=== PATIENT | female | born 1950 | race Native Hawaiian/Other Pacific Islander ===

== ENCOUNTER → 2020-10-30 | Outpatient (CLI) | payer MEDICARE, OTHER ==
--- NOTE | 2020-10-30 16:59 | CT ---
EXAMINATION TYPE: CT chest wo con DATE OF EXAM: 10/30/2020 COMPARISON: None HISTORY: SOB, abnormal Xray CT DLP: 230 mGycm, Automated exposure control for dose reduction was used. CONTRAST: Performed injected with 0 mL of Isovue 300. TECHNIQUE: Axial images were obtained at 5 mm thick sections. Reconstructed images are reviewed on [facility] computer in the coronal plane. FINDINGS: Portion of the thyroid visualized is normal. There appears be a large loculated pleural fluid collection within the anterior left lung opacifying the majority of the lung loo. Findings could also be compatible with a large mass. Emphysematous changes and pulmonary fibrosis is evident within the aerated portions of the lungs. There is a 2.2 cm pretracheal lymph node. Left hilar adenopathy with be difficult to exclude. There appears to be a 1.8 cm subcarinal lymph node present lack of intravenous contrast limiting evaluation for adenopathy. The ascending aorta diameter at the level of the main pulmonary artery is 3.6 cm. T main pulmonary artery diameter at the bifurcation is 3.5 cm. Coronary artery calcification is pres ent. There is a moderate to prominent pericardial effusion. Limited CT sections are obtained through the upper abdomen. Abdomen is essentially unremarkable. IMPRESSIONS: 1. Large mass measuring 35 Hounsfield units in the left upper lung field with a small left pleural ef fusion. This could be a large mass with metastatic extension to the mediastinal lymph nodes. Suspecte d enlarged mediastinal adenopathy. This is limited with lack of intravenous contrast. Differential di agnosis could include a large loculated proteinaceous fluid. 2. Moderate to prominent pericardial effusion.
== END | disposition home or self-care (01) ==
LOC: RADCTMAIN 14:49
PROVIDERS: ATTEND Family Medicine
DX: J90 Pleural effusion, not elsewhere classified (principal); I31.3 Pericardial effusion (noninflammatory); R06.02 Shortness of breath; R91.8 Other nonspecific abnormal finding of lung field; F17.219 Nicotine dependence, cigarettes, with unspecified nicotine-induced disorders
CPT/HCPCS: 71250

== ENCOUNTER 2020-11-12 11:05 | Day surgery (SDC) | payer MEDICARE, OTHER ==
[2020-11-07 10:28] VITALS: BMI 19.0
[~2020-11-12 11:05] MED LIST: ALBUTEROL NEB (CONC) 2.5 MG/0.5 ML INHALATION ONE; ATROPINE SULFATE 0.4 MG/ML 1 ML VIAL IM ONE; LACTATED RINGERS 1,000 ML IV SCH; LIDOCAINE 1% (10MG/ML) FOR IV START INTRADERMA PRN; LIDOCAINE 2% (PF) 20 MG/ML 5 ML VIAL INHALATION ONE; LIDOCAINE VISCOUS 300 MG/15 ML CUP MUCOUS MEM ONE; MIDAZOLAM 2 MG/2 ML VIAL IV PRN
[2020-11-12] MEDS ORDERED: ONDANSETRON 4 MG/2 ML VIAL ONE (12:22)
--- NOTE | 2020-11-12 12:49 | CT ---
EXAMINATION TYPE: CT Chest jenny Lee Protocol DATE OF EXAM: 11/12/2020 COMPARISON: 10/30/2020 HISTORY: Pulmonary nodules, mass CT DLP: 510 mGycm Automated exposure control for dose reduction was used. FINDINGS: Limited exam as part of CT chest protocol. Large area of masslike consolidation occupying a large por tion of the left upper lobe measuring at least 10 cm. There is a left-sided pleural effusion with thais r complete opacification of the left lung. Coarsened interstitium in the right lung and the visualize d portions of the left lung suggest chronic interstitial pulmonary fibrosis. The masslike area of consolidation or neoplastic process results in displacement from left to right o f the mediastinal structures. Atherosclerotic change of the aorta. Suspect that there is pathologic a denopathy or additional mass in the right suprahilar region measuring 4.2 cm. Structures of the upper abdomen are limited. Previously noted mediastinal lymphadenopathy appears sta ble. A nodule adjacent to the spleen is indeterminate. Would require contrast to determine if this is an accessory spleen or an area of metastatic lymphadenopathy. There is a moderate-sized pericardial effusion. Hypertrophic and degenerative change of the spine. Areas of sclerosis involving the mid tho racic vertebral segments is nonspecific. Could be discogenic. Metastases not excluded. Suspect right adrenal gland thickening and mass suspicious for adenopathy. IMPRESSION: 1. SUSPECTED MEDIASTINAL AND HILAR ADENOPATHY WITH LARGE LEFT UPPER LOBE PULMONARY MASS AND LEFT-SIDE D PLEURAL EFFUSION. 2. CORRELATE FOR INTERSTITIAL PULMONARY FIBROSIS. 3. MODERATE-SIZED PERICARDIAL EFFUSION. 4. SUSPECT ADRENAL GLAND ENLARGEMENT AND MASS WITH PROBABLE METASTASES.
[2020-11-12] MEDS ORDERED: MIDAZOLAM 2 MG/2 ML VIAL ONE (13:09)
[2020-11-12] MEDS ORDERED: SUCCINYLCHOLINE CHLORIDE 100 MG/5 ML SYR IV ONE (13:09)
[2020-11-12] MEDS ORDERED: NEOSTIGMINE 1 MG/ML 10 ML VIAL ONE (13:09)
[2020-11-12] MEDS ORDERED: ROCURONIUM 10 MG/ML (10 ML VIAL) IV ONE (13:09)
[2020-11-12] MEDS ORDERED: GLYCOPYRROLATE 0.2 MG/ML 2 ML VIAL ONE (13:09)
[2020-11-12] MEDS ORDERED: fentaNYL (PF) 50 MCG/ML 2 ML AMP ONE (13:09)
[2020-11-12] MEDS ORDERED: PROPOFOL 10 MG/ML 20 ML VIAL IV ONE (13:09)
[2020-11-12] MEDS: POTASSIUM CHLORIDE 10 MEQ in WATER FOR INJECTION 1 100ML.BAG IVPB SCH ×5 (14:15→23:05)
--- NOTE | 2020-11-12 14:44 | XR ---
EXAMINATION TYPE: XR chest 1V portable DATE OF EXAM: 11/12/2020 COMPARISON: CT same date HISTORY: Status post bronchoscopy, lung mass TECHNIQUE: Single frontal view of the chest is obtained. FINDINGS: There is no pneumothorax. Left pleural effusion persists. Abnormal attenuation throughout the left hemithorax with near complete opacification is again seen. There is mediastinal shift toward s the right. Postop changes are noted cervical spine. Interstitium is prominent the right lung. Aorta is dense. IMPRESSION: No evident complication status post bronchoscopy.
[2020-11-12] MEDS ORDERED: NALOXONE 0.4 MG/ML 1 ML VIAL IV PRN (15:28)
[2020-11-12] MEDS ORDERED: oxyCODONE-APAP 5-325MG 1 EACH TAB PO PRN (15:28)
[2020-11-12] MEDS ORDERED: ONDANSETRON 4 MG/2 ML VIAL IVP PRN (15:28)
[2020-11-12] MEDS ORDERED: POTASSIUM CHLORIDE ER 20 MEQ TAB.ER PO STA (15:31)
--- NOTE | 2020-11-12 16:50 | P.HPIM ---
History of Present Illness H&P Date: 11/12/20 Chief Complaint: Hypokalemia 69 year old woman with COPD and chronic respiratory failure requiring 3L O2, current smoker presented for elective bronchoscopy in background of recently discovered lung mass. Patient was seen one week ago by pulmonary and had CT chest which showed mass in the left upper lobe. Pt underwent procedure today for pathological specimen, and recovered well without complications. Notably, patient had low level of potassium, prompting her admission to observation to correct her metabolic derangement. Patient had history of right ankle swelling and her PCP started lasix and potassium supplement approximately 1 week ago. Since that time, patient has lost 7lbs in weight. Pt denies fevers, chills, nausea, vomiting, ZUNIGA, chest pain, palps, dyspnea, abd pain, dysuria, dyschezia, numbness/weakness. Review of Systems All Systems reviewed and pertinent positives and negatives noted in HPI, all other symptoms are negative Past Medical History Past Medical History: Cancer, Osteoarthritis (OA), Skin Disorder Additional Past Medical History / Comment(s): uses oxygen at 3L continuous, recent dx of lung cancer, psoriasis, edema rt ankle. pt has appointment with Dr Ramirez 11/08/20-daughter state she has no cardiac hx and not sure why this appointment set up by PCP History of Any Multi-Drug Resistant Organisms: None Reported Past Surgical History: Cholecystectomy Additional Past Surgical History / Comment(s): cervical fusion Past Anesthesia/Blood Transfusion Reactions: No Reported Reaction Smoking Status: Current some day smoker, Former smoker - Past Family History Brother(s) Family Medical History: Cancer Additional Family Medical History / Comment(s): lung Medications and Allergies Home Medications Medication Instructions Recorded Confirmed Type Furosemide [Lasix] 20 mg PO DAILY 11/07/20 11/12/20 History Ibuprofen [Motrin Ib] 200 mg PO Q8H PRN 11/07/20 11/12/20 History Multivitamin/Iron/Folic Acid 1 each PO DAILY 11/07/20 11/12/20 History [Centrum Adults Tablet] Potassium(Dose Unknown) 1 tab PO DAILY 11/07/20 11/12/20 History Allergies Allergy/AdvReac Type Severity Reaction Status Date / Time codeine Allergy hives Verified 11/12/20 11:42 Penicillins Allergy throat Verified 11/12/20 11:42 closed Physical Exam Osteopathic Statement: *. No significant issues noted on an osteopathic structural exam other than those noted in the History and Physical/Consult. Vitals: Vital Signs Temp Pulse Pulse Resp BP BP Pulse Ox 11/12/20 16:07 93 16 136/82 92 L 11/12/20 15:34 87 16 155/85 95 11/12/20 14:46 75 16 180/97 91 L 11/12/20 14:32 73 18 181/96 91 L 11/12/20 14:18 84 18 165/89 94 L 11/12/20 14:03 98 F 83 14 153/81 96 11/12/20 11:33 98.4 F 84 20 177/96 94 L Intake and Output 11/12/20 11/12/20 11/12/20 06:59 14:59 22:59 Intake Total 600 100 Balance 600 100 Intake: IV 600 100 Other: Weight 39.8 kg Gen: awake, alert, cachectic elderly woman HEENT: normocephalic, atraumatic, good hearing acuity, moist mucous membranes Resp: good air exchange, breathing comfortably with no accessory muscle use, clear to auscultation bilaterally CVS: good distal perfusion x 4, regular rate and rhythm without murmurs GI: soft, NTTP, ND : no SPT, no CVAT, valdez catheter not present MSK: no pitting edema, no clubbing Neuro: non-focal, moving all extremities Psych: cooperative, euthymic mood Results CBC & Chem 7: 11/12/20 11:38 Labs: Abnormal Lab Results - Last 24 Hours (Table) 11/12/20 Range/Units 11:38 Potassium 2.6 L* (3.5-5.1) mmol/L Thrombosis Risk Factor Assmnt - Choose All That Apply Each Factor Represents 1 point: Minor surgery planned Each Risk Factor Represents 2 Points: Age 61-74 years, Malignancy Thrombosis Risk Factor Assessment Total Risk Factor Score: 5 Thrombosis Risk Factor Assessment Level: High Risk Assessment and Plan Assessment: 1. Hypokalemia 2. COPD with chronic respiratory failure, 3L O2 via NC 3. Lung Mass 4. Hypertension 5. 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 Plan: - admit to telemetry - regular diet - pt rec'd 3 x 10mEq of K via IV route in PACU - pt to rec 40mEq PO Tab - repeat K in the AM - magnesium level - repeat BMP, Mg in the AM and replace accordingly - likely discharge tomorrow - will add BP medication if required on discharge - encourage PO intake - LR 75cc/hr until discharge - d/c home lasix versus increase home potassium, TBD Full Code Daughter is DPOA
[2020-11-12] MEDS: LACTATED RINGERS 1,000 ML IV SCH (17:01)
[2020-11-12] MEDS ORDERED: NICOTINE 21MG/24HR PATCH TRANSDERM SCH (18:00)
[2020-11-12] MEDS: SODIUM CHLORIDE 0.9% 1,000 ML IV SCH (18:11)
[2020-11-12 18:29] LABS: Anisocytosis Slight; Basophils # (A) 0.1 k/uL (0-0.2); Basophils % (A) 1 %; Eosinophils % (A) 0 %; HCT 41.6 % (34.0-46.0); HGB 13.1 gm/dL (11.4-16.0); Hypochromasia Slight; Lymphocytes % (A) 12 %; MCH 26.4 pg (25.0-35.0); MCHC 31.4 g/dL (31.0-37.0); MCV 83.9 fL (80.0-100.0); Mean Platelet Volume 9.1; Monocytes # (A) 0.3 k/uL (0-1.0); Monocytes % (A) 4 %; Neutrophils # (A) 7.1 k/uL (1.3-7.7); Neutrophils % (A) 83 %; Platelet Count 326 k/uL (150-450); RBC 4.95 m/uL (3.80-5.40); RDW 18.5 % (11.5-15.5); WBC 8.5 k/uL (3.8-10.6)
[2020-11-12 18:39] LABS: ALT 13 U/L (4-34); AST 31 U/L (14-36); African American GFR (CKD) >90 (>60 ml/min/1.73 sqM); Albumin 3.1 g/dL (3.5-5.0); Alkaline Phosphatase 126 U/L (38-126); Anion Gap 6 mmol/L; Blood Urea Nitrogen 9 mg/dL (7-17); Carbon Dioxide 37 mmol/L (22-30); Chloride 96 mmol/L (98-107); Glucose 165 mg/dL (74-99); Magnesium 1.7 mg/dL (1.6-2.3); Non-African American GFR(CKD) >90 (>60 ml/min/1.73 sqM); Potassium 3.1 mmol/L (3.5-5.1); Sodium 139 mmol/L (137-145); Total Bilirubin 0.5 mg/dL (0.2-1.3); Total Protein 7.4 g/dL (6.3-8.2)
--- NOTE | 2020-11-12 18:42 | PCN ---
PROCEDURE NOTE PROCEDURE: Bronchoscopy, airway examination, therapeutic lavage, bronchoalveolar lavage, endobronchial biopsies, left upper lobe, transbronchial biopsies, left upper lobe, transbronchial needle aspiration, left upper lobe, brushes left upper lobe and washes left upper lobe. PREOPERATIVE DIAGNOSIS: Rule out lung cancer. POSTOPERATIVE DIAGNOSIS: Rule out lung cancer. OPERATORS: 1. Dr. Terrell. 2. Dr. Pulido. There was informed consent and universal timeout. The patient's procedure took place in the endoscopy suite. DESCRIPTION OF PROCEDURE: Anesthesia provided general anesthesia. After the patient was sedated and anesthetized and on the ventilator, the bronchoscope was inserted through the bronchoscope adapter connected to the endotracheal tube. The bronchoscope was taken through the endotracheal tube out into the trachea. The trachea itself appeared normal. Tracheal aaron was sharp. The right upper lobe and its 3 segments, right middle lobe and its 2 segments, right lower lobe and its 5 segments all appeared normal. On the left side, the left lower lobe appeared normal. In the left upper lobe, there was a large tumor obstructing both the left upper lobe proper and the lingula. This is where we did our sampling. Initially we did a transbronchial needle aspiration of the lesion. We did multiple passes. I believe we did 4 different passes. Next we did endobronchial and transbronchial biopsies of the lesion in the left upper lobe. Finally, we did brushes of that lesion as well as washes. We used an [employer] navigational bronchoscopy equipment. There was minimal bleeding. We made sure there was adequate hemostasis before the bronchoscope was withdrawn. The patient tolerated the procedure well. The patient will be recovered by Anesthesia. I did talk to the patient's daughter. I also gave her pictures of the lesion. The patient tolerated the procedure without complication. MMODL / IJN: [id number] /
[2020-11-12 18:45] LABS: Prothrombin Time 10.7 sec (9.0-12.0)
[2020-11-12] MEDS ORDERED: MAGNESIUM SULFATE-D5W PMX 1 GM in DEXTROSE/WATER 1 100ML.BAG IVPB ONE (20:00)
[2020-11-13] MEDS: POTASSIUM CHLORIDE 10 MEQ in WATER FOR INJECTION 1 100ML.BAG IVPB SCH ×2 (00:16→02:21)
[2020-11-13] MEDS: LACTATED RINGERS 1,000 ML IV SCH (06:41)
[2020-11-13] MEDS: SODIUM CHLORIDE 0.9% 1,000 ML IV SCH (06:41)
[2020-11-13 07:06] LABS: Amorphous Sediment,Urine Rare /hpf; Appearance,Urine Cloudy (Clear); Bilirubin,Urine Negative (Negative); Blood,Urine Negative (Negative); Cellular Casts,Urine 15 /lpf (0); Color,Urine Yellow; Glucose,Urine (UA) Negative (Negative); Granular Casts,Urine 63 /lpf (0); Hyaline Casts,Urine 38 /lpf (0-2); Ketones,Urine Negative (Negative); Leukocyte Esterase,Urine Small (Negative); Mucus,Urine Few /hpf; Nitrite,Urine Negative (Negative); Protein,Urine 1+ (Negative); RBC,Urine 1 /hpf (0-5); Specific Gravity,Urine 1.017 (1.001-1.035); Squamous Epithelial Cell,Urine 2 /hpf (0-4); Urobilinogen,Urine <2.0 mg/dL (<2.0); WBC,Urine 16 /hpf (0-5)
[2020-11-13 08:19] LABS: Anisocytosis Slight; Basophils # (A) 0.1 k/uL (0-0.2); Basophils % (A) 1 %; Eosinophils % (A) 0 %; HCT 39.3 % (34.0-46.0); HGB 12.5 gm/dL (11.4-16.0); Hypochromasia Slight; Lymphocytes # (A) 1.1 k/uL (1.0-4.8); Lymphocytes % (A) 12 %; MCH 26.8 pg (25.0-35.0); MCHC 31.8 g/dL (31.0-37.0); MCV 84.1 fL (80.0-100.0); Monocytes # (A) 0.3 k/uL (0-1.0); Monocytes % (A) 4 %; Neutrophils # (A) 7.2 k/uL (1.3-7.7); Neutrophils % (A) 82 %; Platelet Count 318 k/uL (150-450); RBC 4.68 m/uL (3.80-5.40); RDW 18.4 % (11.5-15.5); WBC 8.8 k/uL (3.8-10.6)
[2020-11-13 08:33] LABS: African American GFR (CKD) >90 (>60 ml/min/1.73 sqM); Blood Urea Nitrogen 13 mg/dL (7-17); Calcium 10.6 mg/dL (8.4-10.2); Chloride 98 mmol/L (98-107); Glucose 149 mg/dL (74-99); Non-African American GFR(CKD) >90 (>60 ml/min/1.73 sqM); Potassium 4.1 mmol/L (3.5-5.1); Sodium 139 mmol/L (137-145)
[2020-11-13 08:39] LABS: Anion Gap 3 mmol/L; Carbon Dioxide 38 mmol/L (22-30)
[2020-11-13] MEDS ORDERED: ENOXAPARIN 40 MG/0.4 ML SYRINGE SQ SCH (09:00)
[2020-11-13] MEDS ORDERED: MULTIVITAMINS, THERA 1 EACH TAB PO SCH (09:00)
--- NOTE | 2020-11-13 09:29 | P.DS ---
Providers Expected date of discharge: 11/13/20 Attending physician: Cole Lynch [facility] [place] [facility] Course: This is a 69-year-old female with past medical history significant for underlying COPD and chronic hypoxic respiratory failure on home O2 who was placed in observation after she was found to be hypokalemic when having elective bronchoscopy. Patient was recently found to have a lung mass and underwent a bronchoscopy yesterday and her potassium was 2.6. In recovery room I was asked to keep her on observation area patient said that she was started on Lasix and potassium supplement by her PCP secondary to lower extremity edema just recently. At this time, patient appeared dry. Her lower extremity showed no edema. Potassium was replaced. She will be discharged home and was advised to discontinue both Lasix and potassium at this time and monitor for any signs of edema. She will follow-up with her PCP as directed. Potassium at the time of discharge was 4.1. Patient will be discharged home in a stable condition. For further details about this hospitalization please refer to the electronic chart. Time spent on discharge > 30 minutes including counseling and coordination of care Plan - Discharge Summary Discharge Rx Participant: No New Discharge Prescriptions: Continue Ibuprofen [Motrin Ib] 200 mg PO Q8H PRN PRN Reason: Pain Multivitamin/Iron/Folic Acid [Centrum Adults Tablet] 1 each PO DAILY Discontinued Furosemide [Lasix] 20 mg PO DAILY Potassium(Dose Unknown) 1 tab PO DAILY Discharge Medication List Ibuprofen [Motrin Ib] 200 mg PO Q8H PRN 11/07/20 [History] Multivitamin/Iron/Folic Acid [Centrum Adults Tablet] 1 each PO DAILY 11/07/20 [History] Follow up Appointment(s)/Referral(s): Eddi Terrell DO [Doctor of Osteopathic Medicine] - 1 Week Activity/Diet/Wound Care/Special Instructions: MUST RECEIVE POTASSIUM REPLACEMENT AND HAVE REDRAW LAB PRIOR TO D/C HOME Discharge Disposition: HOME SELF-CARE
[2020-11-13 09:38] VITALS: BP 139/84; PULSE 89; RESP 16; TEMP 98.1
== END 2020-11-13 10:28 | disposition home or self-care (01) ==
LOC: ORWHC2ENDO 11:05 → 1SOBS 13:44 → ORWHC2ENDO 11-13 10:28
PROVIDERS: ATTEND Internal Medicine
DX: J44.9 Chronic obstructive pulmonary disease, unspecified (principal); J96.11 Chronic respiratory failure with hypoxia; J90 Pleural effusion, not elsewhere classified; E87.6 Hypokalemia; I10 Essential (primary) hypertension; M19.90 Unspecified osteoarthritis, unspecified site; L40.9 Psoriasis, unspecified; F17.200 Nicotine dependence, unspecified, uncomplicated; Z88.0 Allergy status to penicillin; Z88.5 Allergy status to narcotic agent; Z99.81 Dependence on supplemental oxygen; Z90.49 Acquired absence of other specified parts of digestive tract; Z98.1 Arthrodesis status; Z80.1 Family history of malignant neoplasm of trachea, bronchus and lung; Z82.49 Family history of ischemic heart disease and other diseases of the circulatory system; Z83.3 Family history of diabetes mellitus
CPT/HCPCS: 88104; 88173; 88108; 88305; 80053; 80048; 83735 ×2; 84132; 85025 ×2; 85610; 81001; 71045; 71250; 31629; 31625; 31623; 31624; 31627; J2250; J0461; J2710; J2405; J3010; J3475; J3480 ×2; J0330; J2704; 88341; 88342

== ENCOUNTER 2020-11-19 18:14 | Inpatient (IN) | payer MEDICARE, OTHER ==
[2020-11-19 18:53] LABS: Anisocytosis Slight; Basophils # (A) 0.1 k/uL (0-0.2); Basophils % (A) 1 %; Eosinophils % (A) 1 %; HCT 38.3 % (34.0-46.0); HGB 12.4 gm/dL (11.4-16.0); Lymphocytes # (A) 1.2 k/uL (1.0-4.8); Lymphocytes % (A) 16 %; MCH 26.4 pg (25.0-35.0); MCHC 32.4 g/dL (31.0-37.0); MCV 81.7 fL (80.0-100.0); Mean Platelet Volume 8.6; Microcytosis Slight; Monocytes # (A) 0.4 k/uL (0-1.0); Monocytes % (A) 5 %; Neutrophils # (A) 5.7 k/uL (1.3-7.7); Neutrophils % (A) 77 %; Platelet Count 367 k/uL (150-450); RBC 4.69 m/uL (3.80-5.40); RDW 18.1 % (11.5-15.5); WBC 7.5 k/uL (3.8-10.6)
[2020-11-19 19:06] LABS: ALT 12 U/L (4-34); AST 34 U/L (14-36); African American GFR (CKD) >90 (>60 ml/min/1.73 sqM); Albumin 3.2 g/dL (3.5-5.0); Alkaline Phosphatase 129 U/L (38-126); Blood Urea Nitrogen 12 mg/dL (7-17); Calcium 11.9 mg/dL (8.4-10.2); Chloride 97 mmol/L (98-107); Glucose 112 mg/dL (74-99); Magnesium 2.1 mg/dL (1.6-2.3); Non-African American GFR(CKD) >90 (>60 ml/min/1.73 sqM); Sodium 140 mmol/L (137-145); Total Bilirubin 0.5 mg/dL (0.2-1.3); Total Protein 7.5 g/dL (6.3-8.2)
[2020-11-19 19:13] LABS: Anion Gap 5 mmol/L
[2020-11-19 19:17] LABS: Carbon Dioxide 38 mmol/L (22-30); Potassium 2.2 mmol/L (3.5-5.1)
--- NOTE | 2020-11-19 19:17 | ED ---
General Adult HPI - General Chief complaint: Recheck/Abnormal Lab/Rx Stated complaint: abn labs Time Seen by Provider: 11/19/20 18:15 Source: patient, RN notes reviewed, old records reviewed Mode of arrival: ambulatory Limitations: no limitations - History of Present Illness Initial comments: This is a 69-year-old female who presents to the emergency department with the complaint that her potassium is low. Patient states this has happened once before. Patient was recently diagnosed with lung cancer. Patient states she has been feeling very weak over the last few days. Patient denies any fever chills or cough. Patient denies any chest pain. Patient denies any palpitation. Patient denies abdominal pain patient denies nausea vomiting diarrhea. Patient denies any headache patient denies numbness weakness. - Related Data Home Medications Medication Instructions Recorded Confirmed Ibuprofen [Motrin Ib] 200 mg PO Q8H PRN 11/07/20 11/19/20 Multivitamin/Iron/Folic Acid 1 tab PO DAILY 11/07/20 11/19/20 [Centrum Adults Tablet] hydroCHLOROthiazide 25 mg PO DAILY 11/19/20 11/19/20 Allergies Allergy/AdvReac Type Severity Reaction Status Date / Time codeine Allergy hives Verified 11/19/20 19:02 Penicillins Allergy throat Verified 11/19/20 19:02 closed Review of Systems ROS Statement: Those systems with pertinent positive or pertinent negative responses have been documented in the HPI. ROS Other: All systems not noted in ROS Statement are negative. Past Medical History Past Medical History: Cancer, Osteoarthritis (OA), Skin Disorder Additional Past Medical History / Comment(s): uses oxygen at 3L continuous, recent dx of lung cancer, psoriasis, edema rt ankle. pt has appointment with Dr Ramirez 11/08/20-daughter state she has no cardiac hx and not sure why this appointment set up by PCP History of Any Multi-Drug Resistant Organisms: None Reported Past Surgical History: Cholecystectomy Additional Past Surgical History / Comment(s): cervical fusion Past Anesthesia/Blood Transfusion Reactions: No Reported Reaction Past Psychological History: Anxiety Smoking Status: Former smoker Past Alcohol Use History: None Reported Past Drug Use History: None Reported - Past Family History Brother(s) Family Medical History: Cancer Additional Family Medical History / Comment(s): lung General Exam - General Exam Comments Initial Comments: GENERAL: Patient is well-developed and well-nourished. Patient is nontoxic and well- hydrated and is in mild distress. ENT: Neck is soft and supple. No significant lymphadenopathy is noted. Oropharynx is clear. Moist mucous membranes. Neck has full range of motion without eliciting any pain. EYES: The sclera were anicteric and conjunctiva were pink and moist. Extraocular movements were intact and pupils were equal round and reactive to light. Eyelids were unremarkable. PULMONARY: Significantly decreased breath sounds on the left CARDIOVASCULAR: There is a regular rate and rhythm without any murmurs gallops or rubs. ABDOMEN: Soft and nontender with normal bowel sounds. SKIN: Skin is clear with no lesions or rashes and otherwise unremarkable. NEUROLOGIC: Patient is alert and oriented x3. Cranial nerves II through XII are grossly intact. Motor and sensory are also intact. Normal speech, volume and content. Symmetrical smile. MUSCULOSKELETAL: Normal extremities with adequate strength and full range of motion. LYMPHATICS: No significant lymphadenopathy is noted PSYCHIATRIC: Normal psychiatric evaluation. Limitations: no limitations Course Vital Signs 11/19/20 18:16 Temperature 97.9 F Pulse Rate 85 Respiratory 16 Rate Blood Pressure 141/87 O2 Sat by Pulse 95 Oximetry Medical Decision Making - Medical Decision Making EKG shows normal sinus rhythm at 82 bpm PA interval is 166 dresses 74 QT interval 02 QTC is 352 per patient's EKG shows no ST segment elevation there is Q waves throughout the precordial leads and some slight ST segment depression in leads 1 to and aVF Patient's potassium was 2.2. Patient's chest x-ray showed complete opacification of the left lung. I started the patient on 10 mEq the time of potassium chloride at a time of potassium chloride up to 40 mg. I also gave the patient 40 mg of Magy Dur by mouth. I spoke with Dr. Romero agreed to admit the patient admitted the patient wrote admitting orders I consult pulmonary. - Lab Data Result diagrams: 11/19/20 18:40 11/19/20 18:40 Lab Results 11/19/20 11/19/20 Range/Units 18:40 18:40 WBC 7.5 (3.8-10.6) k/uL RBC 4.69 (3.80-5.40) m/uL Hgb 12.4 (11.4-16.0) gm/dL Hct 38.3 (34.0-46.0) % MCV 81.7 (80.0-100.0) fL MCH 26.4 (25.0-35.0) pg MCHC 32.4 (31.0-37.0) g/dL RDW 18.1 H (11.5-15.5) % Plt Count 367 (150-450) k/uL MPV 8.6 Neutrophils % 77 % Lymphocytes % 16 % Monocytes % 5 % Eosinophils % 1 % Basophils % 1 % Neutrophils # 5.7 (1.3-7.7) k/uL Lymphocytes # 1.2 (1.0-4.8) k/uL Monocytes # 0.4 (0-1.0) k/uL Eosinophils # 0.0 (0-0.7) k/uL Basophils # 0.1 (0-0.2) k/uL Anisocytosis Slight Microcytosis Slight Sodium 140 (137-145) mmol/L Potassium 2.2 L* (3.5-5.1) mmol/L Chloride 97 L (98-107) mmol/L Carbon Dioxide 38 H (22-30) mmol/L Anion Gap 5 mmol/L BUN 12 (7-17) mg/dL Creatinine 0.58 (0.52-1.04) mg/dL Est GFR (CKD-EPI)AfAm >90 (>60 ml/min/1.73 sqM) Est GFR (CKD-EPI)NonAf >90 (>60 ml/min/1.73 sqM) Glucose 112 H (74-99) mg/dL Calcium 11.9 H (8.4-10.2) mg/dL Magnesium 2.1 (1.6-2.3) mg/dL Total Bilirubin 0.5 (0.2-1.3) mg/dL AST 34 (14-36) U/L ALT 12 (4-34) U/L Alkaline Phosphatase 129 H (38-126) U/L Total Protein 7.5 (6.3-8.2) g/dL Albumin 3.2 L (3.5-5.0) g/dL Disposition Clinical Impression: Hypokalemia, Lung consolidation, History of lung cancer, Fatigue Disposition: ADMITTED IP TO THIS [facility] Referrals: Meet Sanchez DO [Primary Care Provider] - 1-2 days Time of Disposition: 19:40
--- NOTE | 2020-11-19 19:21 | XR ---
EXAMINATION TYPE: XR chest 2V DATE OF EXAM: 11/19/2020 COMPARISON: 11/12/2020 HISTORY: bronchoscopy TECHNIQUE: 2 views FINDINGS: There is complete opacification left hemithorax. Heart and mediastinum are shifted somewhat to the right side. There is interstitial coarse infiltrate in the right lung. There is slight blunti ng right costophrenic angle. There are chest leads. 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 Interstitial infiltrate in the right lung. Hydrot horax appears more dense than previous exam.
[2020-11-19] MEDS ORDERED: POTASSIUM CHLORIDE ER 20 MEQ TAB.ER PO STA (19:31)
[2020-11-19] MEDS: POTASSIUM CHLORIDE 10 MEQ in WATER FOR INJECTION 1 100ML.BAG IVPB SCH ×4 (19:41→22:56)
[2020-11-19] MEDS ORDERED: SODIUM CHLORIDE 0.9% 1,000 ML IV ONE (19:42)
[2020-11-20 08:55] LABS: ALT 12 U/L (4-34); AST 34 U/L (14-36); African American GFR (CKD) >90 (>60 ml/min/1.73 sqM); Albumin 3.2 g/dL (3.5-5.0); Alkaline Phosphatase 125 U/L (38-126); Blood Urea Nitrogen 9 mg/dL (7-17); Calcium 12.1 mg/dL (8.4-10.2); Chloride 97 mmol/L (98-107); Glucose 128 mg/dL (74-99); Non-African American GFR(CKD) >90 (>60 ml/min/1.73 sqM); Potassium 3.1 mmol/L (3.5-5.1); Sodium 141 mmol/L (137-145); Total Bilirubin 0.6 mg/dL (0.2-1.3); Total Protein 7.4 g/dL (6.3-8.2)
[2020-11-20 09:26] LABS: Anion Gap 5 mmol/L
[2020-11-20 09:30] LABS: Carbon Dioxide 39 mmol/L (22-30)
--- NOTE | 2020-11-20 11:00 | P.CNPUL ---
History of Present Illness Consult date: 11/20/20 Reason for consult: lung mass History of present illness: 9-year-old female patient was urgently referred to our office because of a large left lung mass. CAT scan of the chest showed a lung mass occupying the majority of the left lung at least 10 cm in size in addition to a left-sided pleural effusion and there is near complete opacification of the left lung which is essentially replaced by tumor. The mass was also displacing the mediastinal structures [id number] and there was also pathologic lymphadenopathy on the right side including the right suprahilar region measuring up to 4.2 cm in size. Note that this CAT scan was done without contrast. Areas of sclerosis was seen in the mid thoracic vertebral segments which are nonspecific. Metastases cannot be excluded in the right adrenal gland. There was a moderate-sized pericardial effusion. Based on this, the patient underwent a medication a bronchoscopy and the biopsy came back positive for squamous cell carcinoma. The patient came back to the hospital yesterday through emergency department complaining of a abnormal lab where she was told that her potassium level was low. She was feeling weak over the past few days. She denied having any fever chills. No chest pain. No palpitation. No nausea vomiting or abdominal pain. No diarrhea. She did have some generalized weakness. No numbness PEEP no tingling. The patient's potassium level came back at 2.2. The patient had nonspecific EKG changes. The patient's hemoglobin was at 12.4 with a white cell count of 7.4 and the patient was started on potassium replacement therapy. Pulmonary consultation was requested. The potassium level today is at 3.1. Calcium level is at 12.1 suggestive of skeletal metastases versus paraneoplastic and currently is on a simple mask with oxygen flow of 15 L. She is quite cachectic. Her voice is somewhat soft and muffled possibly related to some underlying vocal cord pathology, possible paralysis. Review of Systems Constitutional: Reports fatigue, Reports weakness Eyes: denies as per HPI, denies blurred vision, denies bulging eye, denies decreased vision, denies diplopia, denies discharge, denies dry eye, denies irritation, denies itching, denies pain, denies photophobia, denies loss of peripheral vision, denies loss of vision, denies tunnel vision/blind spots Ears, nose, mouth and throat: Reports as per HPI, Reports voice changes Breasts: absent: as per HPI, change in shape, gynecomastia, masses, nipple discharge, pain, skin changes, swelling Cardiovascular: Reports as per HPI Respiratory: Reports as per HPI, Reports cough, Reports dyspnea Gastrointestinal: Reports as per HPI Genitourinary: Reports as per HPI Menstruation: Reports as per HPI Musculoskeletal: Reports as per HPI Musculoskeletal: absent: ankle pain, ankle stiffness, ankle swelling Integumentary: Reports as per HPI Neurological: Reports as per HPI Psychiatric: Reports as per HPI Endocrine: Reports as per HPI Hematologic/Lymphatic: Reports as per HPI Allergic/Immunologic: Reports as per HPI Past Medical History Past Medical History: Cancer, Osteoarthritis (OA), Skin Disorder Additional Past Medical History / Comment(s): uses oxygen at 3L continuous, recent dx of squamous lung cancer, psoriasis, edema rt ankle. pt has appointment with Dr Ramirez 11/08/20-daughter state she has no cardiac hx and not sure why this appointment set up by PCP History of Any Multi-Drug Resistant Organisms: None Reported Past Surgical History: Cholecystectomy Additional Past Surgical History / Comment(s): cervical fusion Past Anesthesia/Blood Transfusion Reactions: No Reported Reaction Past Psychological History: Anxiety Smoking Status: Former smoker Past Alcohol Use History: None Reported Additional Past Alcohol Use History / Comment(s): daughter thinks occ cigar, quit cigarettes 14 yrs ago, smoked over 40 yrs Past Drug Use History: None Reported - Past Family History Brother(s) Family Medical History: Cancer Additional Family Medical History / Comment(s): lung Medications and Allergies Home Medications Medication Instructions Recorded Confirmed Type Ibuprofen [Motrin Ib] 200 mg PO Q8H PRN 11/07/20 11/19/20 History Multivitamin/Iron/Folic Acid 1 tab PO DAILY 11/07/20 11/19/20 History [Centrum Adults Tablet] hydroCHLOROthiazide 25 mg PO DAILY 11/19/20 11/19/20 History Allergies Allergy/AdvReac Type Severity Reaction Status Date / Time codeine Allergy hives Verified 11/19/20 19:02 Penicillins Allergy throat Verified 11/19/20 19:02 closed Physical Exam Vitals: Vital Signs Temp Pulse Pulse Resp BP BP Pulse Ox 11/20/20 08:30 87 26 H 11/20/20 08:00 98.1 F 87 26 H 174/86 91 L 11/20/20 04:00 98.1 F 82 16 166/82 91 L 11/19/20 21:56 98.7 F 80 20 147/93 91 L 11/19/20 21:26 98.0 F 82 18 145/78 93 L 11/19/20 20:22 76 18 92 L 11/19/20 20:21 82 L 11/19/20 19:56 81 18 151/79 86 L 11/19/20 18:16 97.9 F 85 16 141/87 95 Intake and Output 11/19/20 11/20/20 11/20/20 22:59 06:59 14:59 Intake Total 100 Balance 100 Intake: Oral 100 Other: Voiding Method Bedpan # Voids 2 Weight 38.555 kg 38 kg Thin and frail female patient, nonacute respiratory distress, wearing a simple fullface mask and she has a very hoarse and low volume voice. Head exam was generally normal. There was no scleral icterus or corneal arcus. Mucous membranes were moist. Neck was supple and without jugular venous distension, thyromegaly, or carotid bruits. Carotids were easily palpable bilaterally. There is supraclavicular lymphadenopathy Lungs sounds are markedly diminished on the left compared to the right. Cardiac exam revealed the PMI to be normally situated and sized. The rhythm was regular and no extrasystoles were noted during several minutes of auscultation. The first and second heart sounds were normal and physiologic splitting of the second heart sound was noted. There were no murmurs, rubs, clicks, or gallops. Examination of the extremities revealed easily palpable radial, femoral and pedal pulses. There was no cyanosis, clubbing or edema. Abdominal exam revealed normal bowel sounds. The abdomen was soft, non-tender, and without masses, organomegaly, or appreciable enlargement of the abdominal aorta. Neurologically, the patient is awake and alert and the patient does not have any focal neurological deficit. Cranial nerves are essentially intact. Examination of the skin revealed no evidence of significant rashes, suspicious appearing nevi or other concerning lesions. 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 Examination, the patient has digital clubbing and the patient also has suprac lavicular lymphadenopathy worse on the left. He also possibly have an adrenal metastases based on the CAT scan findings. 2 acute on chronic hypoxic respiratory failure. The patient has complete opa cification of the left lung and currently she is on a simple mask at 15 L per minute nasal cannula. She is typically on 3 L of oxygen by nasal cannula 3 acute hypokalemia 4 acute hypercalcemia, rule out skeletal metastases versus paraneoplastic 5 hoarseness, consider vocal cord paralysis 6 COPD 7 gout 8 history of smoking 9 osteoarthritis 10 cachexia with ongoing weight loss Plan IV fluid hydration with normal saline at the rate of 100 mL an hour and monitor the calcium levels Check a bone scan scan Replace potassium Wean down the FiO2 as tolerated and put the patient on IV Zosyn for any possible postobstructive pneumonia as the patient has an endobronchial tumor causing obstruction of the airway and complete opacification of the left lung Prognosis poor.
[2020-11-20 11:13] VITALS: BMI 16.3
[2020-11-20] MEDS: LEVOFLOXACIN 500 MG TAB PO SCH (13:20)
[2020-11-20] MEDS: CLINDAMYCIN 600 MG in DEXTROSE 5% IN WATER 50 ML IVPB SCH ×4 (13:21→20:24)
[2020-11-20] MEDS ORDERED: Potassium Replacement Protocol 1 EACH MISC MISCELLANE PRN (14:41)
[2020-11-20] MEDS: POTASSIUM CHLORIDE ER 20 MEQ TAB.ER PO SCH ×2 (15:44→16:51)
--- NOTE | 2020-11-20 15:44 | NM ---
EXAMINATION TYPE: NM bone scan whole body DATE OF EXAM: 11/20/2020 COMPARISON: CT 10/30/2024 chest x-ray 11/19/2020 HISTORY: Lung cancer Delayed whole-body scanning was performed following the injection of 23.4 mCi Tc 99m MDP. Images acq uired 3 hours post injection. FINDINGS: Soft tissue uptake is normal. Uptake within the ankles, knees, wrists, shoulders and elbows is likely degenerative. No abnormal areas of increased or decreased radiopharmaceutical uptake to suggest meta static disease. IMPRESSION: No evident metastasis.
[2020-11-20] MEDS: HEPARIN SODIUM,PORCINE 5,000 UNIT/ML 1 ML VIAL SQ SCH (20:24)
[2020-11-20] MEDS: FAMOTIDINE 20 MG/2 ML VIAL IV SCH (20:25)
--- NOTE | 2020-11-20 20:37 | P.HPIM ---
History of Present Illness This is a pleasant 69 years old female with past medical history of recent diagnosis of squamous cell lung cancer and chronic hypoxic respiratory failure on 3 L oxygen via nasal cannula, psoriasis, osteoarthritis, he was recently un derwent lung biopsy and bronchoscopy by Dr. Terrell on 11/12/20, she was recently discharged on 11/13, also she was hypokalemic at that time. This time patient presents with generalized weakness associated with hypokalemia. Patient and son at bedside called me they are aware of the diagnosis of left lung cancer. She presents with worsening dyspnea especially over the last 2 days no chest pain but has little cough from little phlegm. She is a smoker and smokes about 1 pack per day quit about 2 weeks ago, she denies alcohol or illicit drugs. Last admission his potassium was 2.6 on 11/12, this time he came in his potassium was the same was 2.6. Upon discharge him on 11/13 he was taking potassium 1 tablet daily and it wasstopped along with discontinuing 20 mg of by mouth Lasix. His potassium on discharge was 4.1 Her potassium was corrected to 4.1 today, rest of the CBC and BMP is unremarkabl e. Urine is cloudy but there is not suspicious of infection, patient is afebrile. ON ADMISSION SHE WAS HYPOXIC TO 86% ON 4 L OXYGEN VIA NASAL CANNULA . Currently his oxygen saturation is 93% on 13 L Ventimask Chest x-ray, left side tension hydrothorax, interstitial infiltrates in the right side EKG showing normal sinus rhythm at [address]-T changes In the emergency room he was started on 1 time dose of by mouth Lasix and Levaquin/clindamycin were added by pulmonary team Hydrochlorothiazide on admission was held Pulmonary input is appreciated,( CAT scan of the chest showed a lung mass occupying the majority of the left lung at least 10 cm in size in addition to a left-sided pleural effusion and there is near complete opacification of the left lung which is essentially replaced by tumor.) Review of Systems CONSTITUTIONAL: No fever, no malaise, no fatigue. HEENT: No recent visual problems or hearing problems. Denied any sore throat. CARDIOVASCULAR: No orthopnea, PND, no palpitations, no syncope. PULMONARY: No chest wall tenderness, no hemoptysis. GASTROINTESTINAL: No diarrhea, no nausea, no vomiting, no abdominal pain. Normoactive bowel sounds. NEUROLOGICAL: No headaches, no weakness, no numbness. HEMATOLOGICAL: Denies any bleeding or petechiae. GENITOURINARY: Denies any burning micturition, frequency, or urgency. MUSCULOSKELETAL/RHEUMATOLOGICAL: Denies any joint pain, swelling, or any muscle pain. ENDOCRINE: Denies any polyuria or polydipsia. Past Medical History Past Medical History: Cancer, Osteoarthritis (OA), Skin Disorder Additional Past Medical History / Comment(s): uses oxygen at 3L continuous, recent dx of squamous lung cancer, psoriasis, edema rt ankle. pt has appointment with Dr Ramirez 11/08/20-daughter state she has no cardiac hx and not sure why this appointment set up by PCP History of Any Multi-Drug Resistant Organisms: None Reported Past Surgical History: Cholecystectomy Additional Past Surgical History / Comment(s): cervical fusion Past Anesthesia/Blood Transfusion Reactions: No Reported Reaction Past Psychological History: Anxiety Smoking Status: Former smoker Past Alcohol Use History: None Reported Additional Past Alcohol Use History / Comment(s): daughter thinks occ cigar, quit cigarettes 14 yrs ago, smoked over 40 yrs Past Drug Use History: None Reported - Past Family History Brother(s) Family Medical History: Cancer Additional Family Medical History / Comment(s): lung Medications and Allergies Home Medications Medication Instructions Recorded Confirmed Type Ibuprofen [Motrin Ib] 200 mg PO Q8H PRN 11/07/20 11/19/20 History Multivitamin/Iron/Folic Acid 1 tab PO DAILY 11/07/20 11/19/20 History [Centrum Adults Tablet] hydroCHLOROthiazide 25 mg PO DAILY 11/19/20 11/19/20 History Allergies Allergy/AdvReac Type Severity Reaction Status Date / Time codeine Allergy hives Verified 11/19/20 19:02 Penicillins Allergy throat Verified 11/19/20 19:02 closed Physical Exam Vitals: Vital Signs Temp Pulse Pulse Resp BP BP Pulse Ox 11/20/20 11:40 98.0 F 83 20 158/82 93 L 11/20/20 08:30 87 26 H 11/20/20 08:00 98.1 F 87 24 174/86 91 L 11/20/20 04:00 98.1 F 82 16 166/82 91 L 11/19/20 21:56 98.7 F 80 20 147/93 91 L 11/19/20 21:26 98.0 F 82 18 145/78 93 L 11/19/20 20:22 76 18 92 L 11/19/20 20:21 82 L 11/19/20 19:56 81 18 151/79 86 L 11/19/20 18:16 97.9 F 85 16 141/87 95 Intake and Output 11/19/20 11/20/20 11/20/20 22:59 06:59 14:59 Intake Total 100 Balance 100 Intake: Oral 100 Other: Voiding Method Bedpan # Voids 2 Weight 38.555 kg 38 kg 38 kg -GENERAL: The patient is alert and oriented x3, not in any acute distress. Thin lady HEENT: Pupils are round and equally reacting to light. EOMI. No scleral icterus. No conjunctival pallor. Normocephalic, atraumatic. No pharyngeal erythema. No thyromegaly. CARDIOVASCULAR: S1 and S2 present. No murmurs, rubs, or gallops. -PULMONARY: Chest is clear to auscultation, no wheezing or crackles. Decreased breath sounds on the left side ABDOMEN: Soft, nontender, nondistended, normoactive bowel sounds. No palpable organomegaly. MUSCULOSKELETAL: No joint swelling or deformity. EXTREMITIES: No cyanosis, clubbing, or pedal edema. NEUROLOGICAL: Gross neurological examination did not reveal any focal deficits. SKIN: No rashes. No petechiae Results CBC & Chem 7: 11/19/20 18:40 11/20/20 17:59 Labs: Abnormal Lab Results - Last 24 Hours (Table) 11/19/20 11/19/20 11/20/20 Range/Units 18:40 18:40 07:37 RDW 18.1 H (11.5-15.5) % Potassium 2.2 L* 3.1 L (3.5-5.1) mmol/L Chloride 97 L 97 L (98-107) mmol/L Carbon Dioxide 38 H 39 H (22-30) mmol/L Glucose 112 H 128 H (74-99) mg/dL Calcium 11.9 H 12.1 H (8.4-10.2) mg/dL Alkaline Phosphatase 129 H (38-126) U/L Albumin 3.2 L 3.2 L (3.5-5.0) g/dL Thrombosis Risk Factor Assmnt - Choose All That Apply Each Risk Factor Represents 2 Points: Age 61-74 years Thrombosis Risk Factor Assessment Total Risk Factor Score: 2 Thrombosis Risk Factor Assessment Level: Low Risk Assessment and Plan Assessment: Recently diagnosed squamous cell left lung cancer With near complete opacification of the left side, with possible elements of pleural effusion possible postobstructive pneumonia Acute hypoxic respiratory failure Severe hypokalemia on admission Cachexia COPD with Chronic hypoxic respiratory failure and a 3 L/m oxygen History of psoriasis Osteoarthritis Plan: This is a pleasant 69 there's old female who presents with left lung Mass, cancer, hypokalemia, with possible elements of postobstructive pneumonia, continue with clindamycin and Levaquin per pulmonary team recommendation, gentle hydration, replacement potassium on monitor, check a pro-calcitonin This is a pleasant 69 years old male who presents with weakness, hypokalemia and possible right lower lobe infiltrate/pneumonia Labs and medication were reviewed.. Continue same treatment. Continue with symptomatic treatment. Resume home medication. Monitor lytes and vitals. DVT and GI prophylaxis. Further recommendations depends on the clinical course of the patient DVT prophylaxis: Subcutaneous heparin GI Prophylaxis: Pepcid PT/OT: Pending Prognosis is guarded
[2020-11-20] MEDS ORDERED: POTASSIUM CHLORIDE ER 20 MEQ TAB.ER PO STA (20:39)
[2020-11-20] MEDS ORDERED: HEPARIN SODIUM,PORCINE 5,000 UNIT/ML 1 ML VIAL SQ SCH (21:00)
[2020-11-21] MEDS: CLINDAMYCIN 600 MG in DEXTROSE 5% IN WATER 50 ML IVPB SCH ×4 (03:31→14:03)
[2020-11-21 07:00] VITALS: RESP 18
[2020-11-21 08:31] LABS: ALT 12 U/L (4-34); AST 34 U/L (14-36); African American GFR (CKD) >90 (>60 ml/min/1.73 sqM); Albumin 3.2 g/dL (3.5-5.0); Alkaline Phosphatase 124 U/L (38-126); Anion Gap 3 mmol/L; Blood Urea Nitrogen 10 mg/dL (7-17); Calcium 11.8 mg/dL (8.4-10.2); Carbon Dioxide 38 mmol/L (22-30); Chloride 101 mmol/L (98-107); Glucose 127 mg/dL (74-99); Magnesium 1.9 mg/dL (1.6-2.3); Non-African American GFR(CKD) >90 (>60 ml/min/1.73 sqM); Potassium 3.4 mmol/L (3.5-5.1); Sodium 142 mmol/L (137-145); Total Bilirubin 0.6 mg/dL (0.2-1.3); Total Protein 7.5 g/dL (6.3-8.2)
[2020-11-21] MEDS ORDERED: ACETAMINOPHEN TAB 325 MG TAB PO PRN (08:56)
[2020-11-21] MEDS: FAMOTIDINE 20 MG/2 ML VIAL IV SCH (09:01)
[2020-11-21] MEDS: HEPARIN SODIUM,PORCINE 5,000 UNIT/ML 1 ML VIAL SQ SCH (09:01)
[2020-11-21] MEDS: POTASSIUM CHLORIDE ER 20 MEQ TAB.ER PO SCH (10:07)
--- NOTE | 2020-11-21 10:51 | P.PN ---
Subjective Progress Note Date: 11/21/20 9-year-old female patient was urgently referred to our office because of a large left lung mass. CAT scan of the chest showed a lung mass occupying the majority of the left lung at least 10 cm in size in addition to a left-sided pleural effusion and there is near complete opacification of the left lung which is essentially replaced by tumor. The mass was also displacing the mediastinal structures [id number] and there was also pathologic lymphadenopathy on the right side including the right suprahilar region measuring up to 4.2 cm in size. Note that this CAT scan was done without contrast. Areas of sclerosis was seen in the mid thoracic vertebral segments which are nonspecific. Metastases cannot be excluded in the right adrenal gland. There was a moderate-sized pericardial effusion. Based on this, the patient underwent a medication a bronchoscopy and the biopsy came back positive for squamous cell carcinoma. The patient came back to the hospital yesterday through emergency department complaining of a abnormal lab where she was told that her potassium level was low. She was feeling weak over the past few days. She denied having any fever chills. No chest pain. No palpitation. No nausea vomiting or abdominal pain. No diarrhea. She did have some generalized weakness. No numbness PEEP no tingling. The patient's potassium level came back at 2.2. The patient had nonspecific EKG changes. The patient's hemoglobin was at 12.4 with a white cell count of 7.4 and the patient was started on potassium replacement therapy. Pulmonary consultation was requested. The potassium level today is at 3.1. Calcium level is at 12.1 suggestive of skeletal metastases versus paraneoplastic and currently is on a simple mask with oxygen flow of 15 L. She is quite cachectic. Her voice is somewhat soft and muffled possibly related to some underlying vocal cord pathology, possible paralysis. Ration of 11/21/2020, the patient is feeling slightly better. She seems to be having a bit more energy and she seems to be slightly more awake compared to yesterday. Her potassium level initially placed and this helped with her overall muscle weakness. She has short of breath with limited amount of activity. She has occasional coffee no significant sputum production. No chest pain. No hemoptysis. No pleurisy. Her flow of oxygen is currently down to 3 L and the patient has no fever chills or night sweats pH is on broad-spectrum antibiotics. Bone scan was completed and there is no evidence of any metastases. She was receiving IV fluids and her calcium level has also improved. Objective - Vital Signs Vital signs: Vital Signs Temp 98.3 F 11/21/20 08:30 Pulse 91 11/21/20 08:30 Resp 18 11/21/20 08:30 BP 140/79 11/21/20 08:30 Pulse Ox 92 L 11/21/20 08:30 Intake & Output 11/20/20 11/21/20 11/21/20 18:59 06:59 18:59 Intake Total 580 450 Output Total 500 1 200 Balance 80 -1 250 Weight 38 kg 38.5 kg Intake: Oral 580 450 Output: Urine 500 1 200 Other: Voiding Method Bedpan # Voids 1 - Exam Thin and frail female patient, nonacute respiratory distress, wearing a simple fullface mask and she has a very hoarse and low volume voice. Head exam was generally normal. There was no scleral icterus or corneal arcus. Mucous membranes were moist. Neck was supple and without jugular venous distension, thyromegaly, or carotid bruits. Carotids were easily palpable bilaterally. There is supraclavicular lymphadenopathy Lungs sounds are markedly diminished on the left compared to the right. Cardiac exam revealed the PMI to be normally situated and sized. The rhythm was regular and no extrasystoles were noted during several minutes of auscultation. The first and second heart sounds were normal and physiologic splitting of the second heart sound was noted. There were no murmurs, rubs, clicks, or gallops. Examination of the extremities revealed easily palpable radial, femoral and pedal pulses. There was no cyanosis, clubbing or edema. Abdominal exam revealed normal bowel sounds. The abdomen was soft, non-tender, and without masses, organomegaly, or appreciable enlargement of the abdominal aorta. Neurologically, the patient is awake and alert and the patient does not have any focal neurological deficit. Cranial nerves are essentially intact. Examination of the skin revealed no evidence of significant rashes, suspicious appearing nevi or other concerning lesions. 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 Examination, the patient has digital clubbing and the patient also has supraclavicular lymphadenopathy worse on the left. He also possibly have an adrenal metastases based on the CAT scan findings. 2 acute on chronic hypoxic respiratory failure. The patient has complete opacification of the left lung and currently she is on oxygen back on 3 L per minute nasal cannula 3 acute hypokalemia, improving 4 acute hypercalcemia, bone scan is negative more metastases likely paraneoplastic 5 hoarseness, consider vocal cord paralysis 6 COPD 7 gout 8 history of smoking 9 osteoarthritis 10 cachexia with ongoing weight loss Plan IV fluid hydration with normal saline at the rate of 100 mL an hour and monitor the calcium levels bone scan scan is negative for mets elevation of the calcium is likely paraneoplastic Replace potassium Wean down the FiO2 to 3 L by nasal cannula IV Zosyn for any possible postobstructive pneumonia as the patient has an endobronchial tumor causing obstruction of the airway and complete opacification of the left lung Prognosis poor. Establish CODE STATUS and awaiting final recommendations by oncology
[2020-11-21 12:07] VITALS: BP 163/79; PULSE 79; TEMP 98
[2020-11-21] MEDS: LEVOFLOXACIN 500 MG TAB PO SCH (14:02)
--- NOTE | 2020-11-21 15:20 | P.CONS ---
History of Present Illness - Reason for Consult Consult date: 11/21/20 Squamous cell lung cancer Requesting physician: Cuauhtemoc Sutton - Chief Complaint fatigue - History of Present Illness Pt is a very pleasant female that we have been asked to see for a recent diagnosis of squamous cell carcinoma of the lung. She was referred to Pulmonary in late October 2020 for 2-3 mo of voice hoarseness, wt loss, and progressive weakness, imaging reveled a VINICIUS mass. CT chest VINICIUS mass, mediastinal and hilar adenopathy, lt plerual effusion and suspect adrenal met. Bronch and biopsy done 11/12/20, path positive for invasive squamous cell carcinoma. Pt is admitted with progressive fatigue. She was found to be hypokalemic, NMBS negative for bone mets, Ca++ 11.8 today. Pt daughter states she was driving in Sep, was walking around independently but, SOB has been present for quite sometime, has progressed, daughter now has to help pt to bathroom and then back to bed, pt is not doing much else. Appetite is poor, no vomiting, hemoptysis, chest pain, abd pain, acute changes in bowel or bladder habits, swelling, or other pain to report. Review of Systems 14 point ROS is negative except as stated in HPI-provided mostly by her daughter Past Medical History Past Medical History: Cancer, Osteoarthritis (OA), Skin Disorder Additional Past Medical History / Comment(s): uses oxygen at 3L continuous, recent dx of squamous lung cancer, psoriasis, edema rt ankle. pt has appointment with Dr Ramirez 11/08/20-daughter state she has no cardiac hx and not sure why this appointment set up by PCP History of Any Multi-Drug Resistant Organisms: None Reported Past Surgical History: Cholecystectomy Additional Past Surgical History / Comment(s): cervical fusion Past Anesthesia/Blood Transfusion Reactions: No Reported Reaction Past Psychological History: Anxiety Smoking Status: Former smoker Past Alcohol Use History: None Reported Additional Past Alcohol Use History / Comment(s): daughter thinks occ cigar, quit cigarettes 14 yrs ago, smoked over 40 yrs Past Drug Use History: None Reported - Past Family History Brother(s) Family Medical History: Cancer Additional Family Medical History / Comment(s): lung Medications and Allergies Home Medications Medication Instructions Recorded Confirmed Type Ibuprofen [Motrin Ib] 200 mg PO Q8H PRN 11/07/20 11/19/20 History Multivitamin/Iron/Folic Acid 1 tab PO DAILY 11/07/20 11/19/20 History [Centrum Adults Tablet] Acetaminophen Tab [Tylenol] 650 mg PO Q6HR PRN tab 11/21/20 Rx Clindamycin [Cleocin] 450 mg PO Q6H #120 cap 11/21/20 Rx Famotidine [Pepcid] 20 mg PO Q12HR #60 tab 11/21/20 Rx Levofloxacin [Levaquin] 500 mg PO Q24H 10 Days #10 tab 11/21/20 Rx Potassium Chloride ER [K-Dur 10] 10 meq PO DAILY 5 Days #5 tab 11/21/20 Rx Allergies Allergy/AdvReac Type Severity Reaction Status Date / Time codeine Allergy hives Verified 11/19/20 19:02 Penicillins Allergy throat Verified 11/19/20 19:02 closed Physical Exam Vitals: Vital Signs Temp Pulse Resp BP Pulse Ox 11/21/20 14:04 18 11/21/20 12:05 98.0 F 79 18 163/79 92 L 11/21/20 08:30 98.3 F 91 18 140/79 92 L 11/21/20 06:30 18 95 11/21/20 03:47 98.1 F 55 L 20 168/70 94 L 11/21/20 01:25 98 11/20/20 23:11 98 F 80 19 168/88 93 L 11/20/20 20:00 98.4 F 86 19 166/98 91 L 11/20/20 16:00 86 20 156/81 91 L Intake and Output 11/21/20 11/21/20 11/21/20 06:59 14:59 22:59 Intake Total 690 Output Total 1 200 Balance -1 490 Intake: Oral 690 Output: Urine 1 200 Other: # Voids 1 Weight 38.5 kg - Constitutional General appearance: cooperative, no acute distress, thin - EENT Eyes: anicteric sclerae, EOMI, poor dentition ENT: hearing grossly normal - Neck Neck: no lymphadenopathy - Respiratory Respiratory: bilateral: CTA, diminished - Cardiovascular Rhythm: regular Heart sounds: normal: S1, S2 Abnormal Heart Sounds: no systolic murmur, no diastolic murmur, no rub, no S3 Gallop, no S4 Gallop, no click, no other leg Peripheral Edema: bilateral: None - Gastrointestinal General gastrointestinal: no absent bowel sounds, no decreased bowel sounds, no distended, no hepatomegaly, no hyperactive bowel sounds, normal bowel sounds, no organomegaly, no rigid, scaphoid, soft, no splenomegaly, no tenderness, no umbilical hernia, no ventral hernia - Neurologic Neurologic: CNII-XII intact - Musculoskeletal Musculoskeletal: generalized weakness - Psychiatric Psychiatric: A&O x's 3, appropriate affect, intact judgment & insight Results CBC & Chem 7: 11/19/20 18:40 11/21/20 12:30 Labs: Abnormal Lab Results - Last 24 Hours (Table) 11/20/20 11/21/20 Range/Units 17:59 07:37 Potassium 3.0 L 3.4 L (3.5-5.1) mmol/L Carbon Dioxide 38 H (22-30) mmol/L Glucose 127 H (74-99) mg/dL Calcium 11.8 H (8.4-10.2) mg/dL Albumin 3.2 L (3.5-5.0) g/dL Comments: NM Bone scan report reviewed CT scan - chest: report reviewed Assessment and Plan (1) Squamous cell lung cancer Narrative/Plan: Reviewed diagnosis of squamous cell lung cancer, most likely stage IV. MRI brain and completion of images (CT or PET) for staging are suggested. If stage IV intent of treatment is to decrease disease burden, help relieve symptoms of cancer and prolong life. Based on pt PS and comorbidities tolerance to treatment is variable. We discussed biomarker testing of the tumor to see if pt is a candidate for a targeted agent or IO. We will request specimen block be sent. All pt and daughters questions were answered to their satisfaction. We discussed palliative care and hospice care, intent of each. Highly recommend palliative if they have not made and decisions regarding how they would like to proceed with cancer by discharge. Case discussed with Attending Status: Acute Priority: High Code(s): C34.90 - MALIGNANT NEOPLASM OF UNSP PART OF UNSP BRONCHUS OR LUNG SNOMED Code(s): 232640308 Plan: Doctor attests: I performed a history and physical examination of this patient, developed impression and plan of care. Discussed with dictator. I agree with dictators note, documented as a scribe. Time with Patient: Greater than 30
[2020-11-21] MEDS ORDERED: FAMOTIDINE 20 MG TAB PO SCH (21:00)
--- NOTE | 2020-11-21 23:23 | P.DS ---
Providers Date of admission: 11/19/20 19:43 Attending physician: Gavin Lew Consults: 11/19/20 19:42 Consult Physician Urgent Consulting Provider: Cuauhtemoc Sutton Consult Reason/Comments: Opacification left lung, lung cancer Do you want consulting provider notified?: Yes 11/20/20 16:46 Consult Physician Routine Consulting Provider: Donal Feng Consult Reason/Comments: lung CA Do you want consulting provider notified?: Yes Primary care physician: Meet Sanchez Hospital Course: Diagnoses: COPD with acute exacerbation stage IV left lung cancer with metastasis to the bone, however bone scan was negative with history of Malignant right side pleural effusion, and near complete consolidation of the right lung Possible postobstructive pneumonia Acute hypoxic respiratory failure secondary to above Hyperlipidemia Hospital course: This is a pleasant 69 years old female with past medical history of recent diagnosis of squamous cell lung cancer and chronic hypoxic respiratory failure on 3 L oxygen via nasal cannula, psoriasis, osteoarthritis, he was recently underwent lung biopsy and bronchoscopy by Dr. Terrell on 11/12/20, she was recently discharged on 11/13, also she was hypokalemic at that time. This time patient presents with generalized weakness associated with hypokalemia. Patient was on hydrochlorothiazide which was stopped, potassium replaced to normal 3.7 upon discharge and short course of oral potassium is provided as well as dietary advice. Patient is with advanced lung cancer and possible postobstructive pneumonia, she's been evaluated by pulmonary/critical care team and started on clindamycin and Levaquin. Consultants on the case for pulmonary team as well as oncology team. Consultants discussed hospice care with the patient, I got contacted by the nursing staff that the patient TO go to hospice. I had a lengthy discussion with the patient and daughter at bedside on several occasions discussing the treatment plan, patient does not want to stay in the hospital to get treated with antibiotic and I told her she is not medically cleared for discharge although she was asking to be discharged today. Patient does not want to leave AMA concerning that her medical insurance provider will not be done for this visit. Given AMA also appears not recommended for the patient. Patient eventually with at bedside both decided to go for hospice. I explained to them clearly that hospice means likely expectancy less than 6 months which is true for her case. if She refuses therapy. Patient confirmed to me and to the daughter and bed side nurse Ketty that she does not want any chemotherapy, radiotherapy, immunotherapy or any other therapy for her cancer. Then hospice becomes eligible for her, I explained to her the idea of hospice. I also told her that she can change her mind and come out of hospice if she wants. Based upon my evaluation patient has capacity to make medical decision as she is oriented to time, place and person and she is aware of her diagnosis and she will follow commands clearly Patient was adamant to leave the hospital today on hospice care. Discussed with business relations manager Lorraine about the hospice care, also I called Angeles from hospice care team and she confirmed to me she is going to me the patient tomorrow Patient has oxygen at home as per business relations manager Problems and management plan were discussed with the patient and he verbalized understanding and acceptance Patient was found stable and can be discharged home however he needs follow-up as an outpatient. Patient was instructed to follow up with PCP within one week and patient agrees Physical exam Gen: patient is a AAOx3, no distress, cachexia CVS: S1-S2, RRR, no murmur -Lungs: Decreased breath sounds on the left side, no wheezing, tachypnea Abdomen: soft, no distention, no tenderness, positive bowel sounds Extremity: no leg edema or induration Time spent more than 35 minutes Patient Condition at Discharge: Poor Plan - Discharge Summary Discharge Rx Participant: No New Discharge Prescriptions: New Clindamycin [Cleocin] 450 mg PO Q6H #120 cap Potassium Chloride ER [K-Dur 10] 10 meq PO DAILY 5 Days #5 tab Levofloxacin [Levaquin] 500 mg PO Q24H 10 Days #10 tab Famotidine [Pepcid] 20 mg PO Q12HR #60 tab Acetaminophen Tab [Tylenol] 650 mg PO Q6HR PRN tab PRN Reason: Fever and/ or Mild Pain Continue Ibuprofen [Motrin Ib] 200 mg PO Q8H PRN PRN Reason: Pain Multivitamin/Iron/Folic Acid [Centrum Adults Tablet] 1 tab PO DAILY Discontinued hydroCHLOROthiazide 25 mg PO DAILY Discharge Medication List Ibuprofen [Motrin Ib] 200 mg PO Q8H PRN 11/07/20 [History] Multivitamin/Iron/Folic Acid [Centrum Adults Tablet] 1 tab PO DAILY 11/07/20 [History] Acetaminophen Tab [Tylenol] 650 mg PO Q6HR PRN tab 11/21/20 [Rx] Clindamycin [Cleocin] 450 mg PO Q6H #120 cap 11/21/20 [Rx] Famotidine [Pepcid] 20 mg PO Q12HR #60 tab 11/21/20 [Rx] Levofloxacin [Levaquin] 500 mg PO Q24H 10 Days #10 tab 11/21/20 [Rx] Potassium Chloride ER [K-Dur 10] 10 meq PO DAILY 5 Days #5 tab 11/21/20 [Rx] Follow up Appointment(s)/Referral(s): Eddi Terrell DO [Doctor of Osteopathic Medicine] - [facility] [NON-STAFF] - 11/22/20 Meet Sanchez DO [Primary Care Provider] - 1-2 days Patient Instructions/Handouts: Hypokalemia (DC) Discharge Disposition: HOME WITH HOSPICE
--- NOTE | 2020-11-26 08:57 | CDI ---
Documentation Clarification Form Date: 11/26/20 From: Cari Pope Phone: If you have a question about this query, please contact Courtney Shaffer, Sonar Technician at [phone] between 8am and 5pm. Admit Date: 11/19/2020 07:43:00 PM Patient Name: Glendy Acuña Visit Number: [id number] Discharge Date: 11/21/2020 02:46:00 PM ATTENTION: The Clinical Documentation Specialists (CDI) and [facility] Coding Staff appreciate your assistance in clarifying documentation. Please respond to the clarification below the line at the bottom and electronically sign. The CDI & [facility] Coding staff will review the response and follow-up if needed. Please note: Queries are made part of the Legal Health Record. If you have any questions, please contact the author of this message via ITS. Dr. Argueta E Sheet, The patient has cachexia with ongoing weight loss associated with left upper lobe cancer. Per dietary consult: weight loss 24% of UBW in 1 year, severe fat and muscle depletion, bucal fat pads History/Risk Factors: hypokalemia, acute and chronic hypoxic respiratory failure, pneumonia w COPD exacerbation, malignant pleural effusion, mets to bone Labs: Current BMI: 16.6 Albumin: 3.2 Total Protein: 7.5, 7.4 Dietary Consult: Malnutrition, severe, chronic Supplements: high-calorie, high protein, supplements daily, Enlive TID In your professional opinion, can you please clarify if these findings signify one of the following conditions? Mild Protein-Calorie Malnutrition Moderate Protein-Calorie Malnutrition Severe Protein-Calorie Malnutrition Malnutrition, unspecified Other condition, please specify Unable to determine Severe Protein-Calorie Malnutrition MTDD
== END 2020-11-21 14:46 | disposition hospice, home (50) | DRG 640 ==
LOC: EC 18:14 → 5NMEDONC 19:43 → 3SCARD 21:16
PROVIDERS: ADMIT Internal Medicine; ATTEND Internal Medicine
PROC: 5A0935A Assistance with Respiratory Ventilation, Less than 24 Consecutive Hours, High Flow/Velocity Cannula (ICD-10-PCS; principal; 2020-11-21)
DX: E87.6 Hypokalemia (principal); J96.21 Acute and chronic respiratory failure with hypoxia; E43 Unspecified severe protein-calorie malnutrition; J18.9 Pneumonia, unspecified organism; J94.8 Other specified pleural conditions; R64 Cachexia; I31.3 Pericardial effusion (noninflammatory); C79.51 Secondary malignant neoplasm of bone; J44.0 Chronic obstructive pulmonary disease with (acute) lower respiratory infection; J44.1 Chronic obstructive pulmonary disease with (acute) exacerbation; C34.12 Malignant neoplasm of upper lobe, left bronchus or lung; J91.0 Malignant pleural effusion; Z68.1 Body mass index [BMI] 19.9 or less, adult; E83.52 Hypercalcemia; Z66 Do not resuscitate; Z51.5 Encounter for palliative care; E78.5 Hyperlipidemia, unspecified; M19.90 Unspecified osteoarthritis, unspecified site; L40.9 Psoriasis, unspecified; R49.0 Dysphonia; Z99.81 Dependence on supplemental oxygen; Z79.899 Other long term (current) drug therapy; Z87.891 Personal history of nicotine dependence; Z90.49 Acquired absence of other specified parts of digestive tract; Z98.1 Arthrodesis status; Z87.19 Personal history of other diseases of the digestive system; Z87.39 Personal history of other diseases of the musculoskeletal system and connective tissue; Z86.59 Personal history of other mental and behavioral disorders; Z98.890 Other specified postprocedural states; Z88.5 Allergy status to narcotic agent; Z88.0 Allergy status to penicillin; Z80.1 Family history of malignant neoplasm of trachea, bronchus and lung
CPT/HCPCS: 36415; 71046; 78306; 80053; 83735; 84132; 85025; 86705; 87340; 87390; 93005; 96365; 96366; 99285

== ENCOUNTER 2020-11-24 13:06 | Emergency (ER) | payer MEDICARE, OTHER ==
[~2020-11-24 13:06] MED LIST changes: -ALBUTEROL NEB (CONC) 2.5 MG/0.5 ML INHALATION ONE; -ATROPINE SULFATE 0.4 MG/ML 1 ML VIAL IM ONE; +EPINEPHrine 10 ML SYRINGE (0.1 MG/ML) ONE; -LACTATED RINGERS 1,000 ML IV SCH; -LIDOCAINE 1% (10MG/ML) FOR IV START INTRADERMA PRN; -LIDOCAINE 2% (PF) 20 MG/ML 5 ML VIAL INHALATION ONE; -LIDOCAINE VISCOUS 300 MG/15 ML CUP MUCOUS MEM ONE; -MIDAZOLAM 2 MG/2 ML VIAL IV PRN
[2020-11-24 13:13] LABS: Glucose,Whole Blood 150 mg/dL (75-99)
[2020-11-24 13:22] VITALS: PULSE 0; RESP 0
--- NOTE | 2020-11-24 13:29 | ED ---
General Adult HPI - General Chief complaint: Cardiac Arrest/CPR Stated complaint: Cardiac arrest Time Seen by Provider: 11/24/20 13:14 Source: EMS Mode of arrival: EMS Limitations: altered mental status - History of Present Illness Initial comments: Patient presents the ED by ambulance in cardiac arrest. Per EMS, the patient had a witnessed arrest at about 1216 today. Per EMS, the patient was pulseless when they first arrived, but she briefly regained a pulse with CPR/chest compressions. Per EMS, the patient then became asystolic, and CPR was sandie nitiated. Patient was intubated and an IO line was established by EMS. Per EMS, the patient has been defibrillated twice, given 8 doses of epinephrine, given one dose of sodium bicarbonate, and given one dose of amiodarone prior to ED arrival. Per EMS, the patient's family reported to them that the patient has lung cancer, and she has been having respiratory difficulty since yesterday. Per EMS, the patient's blood glucose was checked and was within normal limits. Patient presents the ED with Raul chest compression device in place and actively providing chest compressions. - Related Data Home Medications Medication Instructions Recorded Confirmed Ibuprofen [Motrin Ib] 200 mg PO Q8H PRN 11/07/20 11/19/20 Multivitamin/Iron/Folic Acid 1 tab PO DAILY 11/07/20 11/19/20 [Centrum Adults Tablet] Previous Rx's Medication Instructions Recorded Acetaminophen Tab [Tylenol] 650 mg PO Q6HR PRN tab 11/21/20 Clindamycin [Cleocin] 450 mg PO Q6H #120 cap 11/21/20 Famotidine [Pepcid] 20 mg PO Q12HR #60 tab 11/21/20 Levofloxacin [Levaquin] 500 mg PO Q24H 10 Days #10 tab 11/21/20 Potassium Chloride ER [K-Dur 10] 10 meq PO DAILY 5 Days #5 tab 11/21/20 Allergies Allergy/AdvReac Type Severity Reaction Status Date / Time codeine Allergy hives Verified 11/24/20 13:22 Penicillins Allergy throat Verified 11/24/20 13:22 closed Review of Systems ROS Statement: Those systems with pertinent positive or pertinent negative responses have been documented in the HPI. ROS Other: All systems not noted in ROS Statement are negative. Limitations: ROS unobtainable due to patients medical condition Past Medical History Past Medical History: Cancer, Osteoarthritis (OA), Skin Disorder Additional Past Medical History / Comment(s): uses oxygen at 3L continuous, recent dx of squamous lung cancer, psoriasis, edema rt ankle. pt has appointment with Dr Ramirez 11/08/20-daughter state she has no cardiac hx and not sure why this appointment set up by PCP History of Any Multi-Drug Resistant Organisms: None Reported Past Surgical History: Cholecystectomy Additional Past Surgical History / Comment(s): cervical fusion Past Anesthesia/Blood Transfusion Reactions: No Reported Reaction Past Psychological History: Anxiety Smoking Status: Former smoker Past Alcohol Use History: None Reported Past Drug Use History: None Reported - Past Family History Brother(s) Family Medical History: Cancer Additional Family Medical History / Comment(s): lung General Exam Limitations: no limitations General appearance: other (Patient is intubated; chest compressions with Raul device in progress; GCS = 3) Head exam: Present: atraumatic, normocephalic Eye exam: Present: other (Pupils are fixed and dilated) ENT exam: Present: mucous membranes dry Neck exam: Present: other (Trachea is in midline) Respiratory exam: Present: other (Course in equal breath sounds bilaterally with bagging through ET tube) Cardiovascular Exam: Present: other (Chest compressions with Raul device in progress) GI/Abdominal exam: Present: soft. Absent: distended Extremities exam: Absent: pedal edema Neurological exam: Present: other (GCS = 3; pupils are fixed and dilated; no sp ontaneous respirations or movement) Skin exam: Present: dry, cyanosis, other (cool) Course Vital Signs 11/24/20 13:08 Pulse Rate 0 L Respiratory 0 L Rate - Reevaluation(s) Reevaluation #1: 11/24/20 13:13 ACLS resuscitation was continued on patient's arrival to the ED. Patient was defibrillated twice in the ED secondary to ventricular fibrillation rhythm on the monitor and storage bin tender. Patient was also given 2 doses of epinephrine while in the ED. Resuscitative efforts were stopped due to futility after almost an hour of downtime. Patient was pronounced at 1313 in asystole on monitor and storage bin tender, no spontaneous respirations/movements and fixed and dilated pupils. 11/24/20 13:21 Patient's and daughter were notified of the patient's in ED family room with ED nurse Darshana Pandey present. Medical Decision Making - Lab Data Lab Results 11/24/20 Range/Units 13:11 POC Glucose (mg/dL) 150 H (75-99) mg/dL POC Glu Crab Backer ID Darshana Pandey Critical Care Time Critical Care Time: Yes (Cardiac arrest/ACLS) Total Critical Care Time: 30 Disposition Clinical Impression: Cardiac arrest, Sudden cardiac Disposition: Is patient prescribed a controlled substance at d/c from ED?: No Referrals: Meet Sanchez DO [Primary Care Provider] - 1-2 days Time of Disposition: 13:13 Preliminary Cause of : Cardiorespiratory arrest
== END 2020-11-24 17:31 | disposition expired ==
LOC: EC 13:06
DX: I46.9 Cardiac arrest, cause unspecified (principal); I49.01 Ventricular fibrillation; M19.90 Unspecified osteoarthritis, unspecified site; Z79.899 Other long term (current) drug therapy; Z88.5 Allergy status to narcotic agent; Z88.0 Allergy status to penicillin; Z99.81 Dependence on supplemental oxygen; Z87.891 Personal history of nicotine dependence; Z85.118 Personal history of other malignant neoplasm of bronchus and lung
CPT/HCPCS: 36415; 92950; 99291